=== PATIENT | male | born 1980 | race Caucasian/White ===

== ENCOUNTER 2023-02-06 10:14 | Emergency (ER) | payer OTHER, SELFPAY ==
[2023-02-06] VITALS (10 sets, daily range): BP systolic 158; BP diastolic 95; PULSE 75–108; RESP 16; TEMP 37; O2SAT 89–100; BMI 44.9
--- NOTE | 2023-02-06 10:29 | ED.EXTPRO ---
HPI - Extremity Problem General Chief complaint: Extremity Problem,Nontraumatic Stated complaint: Swelling Rleg, rule o/ Blood clot Time Seen by Provider: 02/06/23 10:21 Source: patient Mode of arrival: Ambulatory History of Present Illness HPI Narrative: 42-year-old gentleman with no significant medical history presents with right leg swelling and primary care suggest any come to the ER to rule out DVT. Notes that approximately 10 days ago [place] and noticed some swelling immediately after the drive. Drove home again 3 days later and the swelling was significantly worse after that. He complains of groin pain. Notes that on December 12(referring back to texting notes) he initially noted some pain in the right groin. He was wondering if perhaps he had recurrent kidney stone or hip flexor abnormality. He is noticed that it has been tender when he stretches but had not noticed any additional abnormalities. Complains of no weight loss, fevers, chills, night sweats, chest pains, shortness of breath, abdominal pain, nausea or vomiting Related Data Previous Rx's Medication Instructions Recorded oxycodone-acetaminophen 5 mg-325 1 tab PO Q6H PRN pain #14 tabs 02/06/23 mg tablet Allergies Allergy/AdvReac Type Severity Reaction Status Date / Time No Known Drug Allergies Allergy Verified 02/06/23 10:22 Review of Systems Review of Systems Narrative: Pertinent positive and negative findings as per HPI Patient History Social History Smoking Status: Unknown if ever smoked Smoking Status: Unknown if ever smoked alcohol intake frequency: 3 or more drinks per day Substance Use Type: does not use Exam Initial Vital Signs Initial Vital Signs: Vital Signs Temperature 98.6 F 02/06/23 10:16 Pulse Rate 108 H 02/06/23 10:16 Respiratory Rate 16 02/06/23 10:16 Blood Pressure 158/95 H 02/06/23 10:16 Pulse Oximetry 96 02/06/23 10:16 Oxygen Delivery Method Room Air 02/06/23 10:16 General: Healthy appearing, in no acute distress. Able to give a complete and coherent history. BMI is 45 HEENT: Moist mucous membranes, normal sclera with reactive pupils, Respiratory: Lungs are clear to auscultation, no wheezing no rales no rhonchi. Full and symmetrical air movement Cardiac: Regular rate and rhythm no murmurs no bruits Abdomen: Soft, nontender, good bowel tones, no flank pain Skin: Warm and dry, no rashes Neurologic: Grossly neurologically intact with no obvious asymmetries or abnormalities Extremities: Right groin with large solid mass in the inguinal area minimally tender to touch, no warmth or erythema. Right leg is swollen but otherwise neurovascularly intact. Psych: Cooperative, appropriate insight and affect Course Orders Ordered: Discontinued Medications Oxycodone/Acetaminophen (Oxycodone/Apap 5/325 Prepack) 1 bottle MISC SEEINSTR ONE Stop: 02/06/23 16:52 Last Admin: 02/06/23 17:13 Dose: Not Given Documented By: NR Vital Signs Vital signs: Vital Signs - 8 hr 02/06/23 10:16 02/06/23 12:16 Temperature 98.6 F Pulse Rate 108 H Pulse Rate [Bilateral Dorsalis Pedis] 82 Respiratory Rate 16 Blood Pressure 158/95 H Pulse Oximetry 96 Oxygen Delivery Method Room Air MDM - Extremity (Nontraumatic) Lab Data 02/06/23 12:46 02/06/23 12:46 Labs: Lab Results 02/06/23 02/06/23 Range/Units 12:46 12:46 WBC 8.5 (4.5-11.0) X10^3/uL RBC 4.72 (4.5-5.9) X10^6/uL Hgb 12.7 L (13.5-17.5) g/dL Hct 37.9 L (41-53) % MCV 80.2 (80-100) fL MCH 26.9 (26-34) PG MCHC 33.6 (30-36) % RDW 13.6 (11.6-14.8) % Plt Count 245 (150-400) X10^3/uL Neut % (Auto) 71.9 (50-75) % Lymph % (Auto) 14.4 L (25-40) % [place] % (Auto) 10.9 (3-14) % Eos % (Auto) 1.9 L (2-4) % Baso % (Auto) 0.9 (0-2) % Neut # (Auto) 6100 (2003-6244) /uL Lymph # (Auto) 1200 (1465-8288) /uL [place] # (Auto) 900 (0-900) /uL Eos # (Auto) 200 (0-450) /uL Baso # (Auto) 100 (0-100) /uL Sodium 136 L (137-145) mmol/L Potassium 4.5 (3.4-5.1) mmol/L Chloride 101 (98-107) mmol/L Carbon Dioxide 30 (22-32) mmol/L BUN 15 (9-20) mg/dL Creatinine 0.77 (0.66-1.25) mg/dL Estimated GFR > 60 (>60) mL/min BUN/Creatinine Ratio 19.5 (6-22) Glucose 87 (70-100) mg/dL Calcium 8.9 (8.4-10.2) mg/dL Total Bilirubin 0.7 (0.2-1.3) mg/dL AST 29 (17-59) IU/L ALT 34 (<50) IU/L Alkaline Phosphatase 74 (38-126) U/L Total Protein 7.6 (6.3-8.2) g/dL Albumin 4.2 (3.5-5.0) g/dL Globulin 3.4 (1.7-4.1) g/dL Albumin/Globulin Ratio 1.2 (1.0-2.8) MDM Narrative Medical decision making narrative: CC: Right leg swelling Complicating co-morbidities: No significant medical history aside from a BMI of 45 Data collected from: patient, Differential considered: DVT, rupture popliteal cyst, lower extremity edema, pelvic obstructing abnormality Exam documented above, pertinent findings include: An approximately 10 cm x 6 cm mass firm, nontender in the inguinal area right side Lab Test results independently reviewed as above. Pertinent findings: CBC is unremarkable CMP is unremarkable Imaging studies independently reviewed: Within the right groin, there is a heterogeneous low echogenicity mass with internal vascularity that measures 11.5 x 8.7 x 8.4 cm. ?CT scan reviewed. Radiolgy interpretation: ?Large 10.4 x 9.6 x 13 cm heterogeneously enhancing mass which appears to be eitheroriginating from the right pectineus muscle versus abutment with medial displacement ofthe muscle.? It is difficult to delineate its margins.? No evidence to suggest adjacent inflammatory changes.? Findings represent a nonspecific soft tissue mass versus possible adenopathy.? Further evaluation with nonemergent biopsy is recommended. Consultations: Discuss with Dr. Huntley, on-call surgery agrees with outpatient follow-up for biopsy of the right inguinal mass. Re-evaluations: Findings are all reviewed with patient. He would like some help with pain control particularly with sleeping. We will give him some Percocet to fill in [place] where he lives. We also discussed continuity of care and where you should follow-up. At this point I strongly recommended he follow up with our general surgery office to make sure that we can expedite biopsy and diagnosis and from there can decide where additional treatment needs to be. With shared decision making, he felt that this too was going to be his best option. Discussion: 42-year-old gentleman presents with right leg swelling. DVT is unremarkable however large inguinal masses appreciated. CT scan shows heterogeneously enhancing mass unclear if it is an independent mass or adenopathy. It is causing right lower extremity edema and pain from the edema. He is having no other complaints. He is aware of the mass as the reason for the swelling and that he needs follow-up with General surgery to schedule a biopsy as soon as possible. Discharge Plan Departure Patient Disposition: Home Clinical Impression: Inguinal mass Activity Restrictions/Additional Instructions: Thank you for coming in today You do not have a blood clot in your leg however we did find a fairly large mass in your right groin. From the CT scan it is not completely clear if this is swollen lymph nodes or an independent mass. This area needs to be biopsied to come to a definitive diagnosis so we can help you best with treatment. Please [phone]. Let them know that you are in the emergency department and need to be scheduled for follow-up consultation for a mass in your groin that will need to be biopsied. In the meantime, your leg will likely continue to be swollen as lymphatic drainage from the leg is being blocked by the mass in your groin. Keeping the leg elevated will likely help. Using ibuprofen Tylenol can be helpful. You may find that compression socks are helpful as well. Prescriptions: New oxycodone-acetaminophen 5-325 mg tablet 1 tab PO Q6H PRN (Reason: pain) Qty: 14 0RF Stand Alone Forms: Patient Portal/API
--- NOTE | 2023-02-06 11:03 | DI.US.S_ITS ---
PROCEDURE: US PERIPH VENOUS LOW EXTREM RT INDICATIONS: RLE EDEMA TECHNIQUE: Real-time imaging, as well as color and pulse Doppler interrogation, were performed of the lower extremity deep veins from the inguinal ligament to the popliteal fossa. COMPARISON: None. FINDINGS: The common femoral, femoral and popliteal veins are normally compressible, and free of intraluminal thrombus. Color and pulse Doppler demonstrate normal phasic intraluminal flow. There is normal augmentation response to distal compression maneuver. Within the right groin, there is a heterogeneous low echogenicity mass with internal vascularity that measures 11.5 x 8.7 x 8.4 cm. IMPRESSION: Negative for deep venous thrombosis. Right groin soft tissue mass seen. Please correlate with patient history and physical examination findings. If appropriate, please consider a follow-up CT for further evaluation. Dictated by: Yusuf Plaza M.D. on 02/06/2023 at 10:10 Approved by: Yusuf Plaza M.D. on 02/06/2023 at 10:12
--- NOTE | 2023-02-06 12:23 | DI.CT.S_ITS ---
PROCEDURE: CT ABDOMEN PELVIS W CON INDICATIONS: right inguinal mass TECHNIQUE: After the administration of intravenous contrast, axial sections acquired from the lung bases to the pubic symphysis. Coronal and sagittal reformats were performed. For radiation dose reduction, the following was used: automated exposure control, adjustment of mA and/or kV according to patient size. COMPARISON: [facility], US, US PERIPH VENOUS LOW EXTREM RT, 02/06/2023, 10:36. FINDINGS: Image quality: Excellent. Lung bases: Unremarkable. Heart: No significant findings. ABDOMEN: Liver: Hepatic steatosis. Mild hepatomegaly Gallbladder: Unremarkable Biliary ducts: Unremarkable. Pancreas: Homogeneous enhancement without focal lesions or pancreatic ductal dilatation. No peripancreatic inflammation or organized fluid collections. Spleen: Mild splenomegaly Adrenal Glands: Unremarkable. Kidneys and Ureters: Kidneys are symmetric in size and enhancement, and there is no obstructive uropathy. No perinephric inflammatory changes. Ureters are normal in course and caliber. Stomach and Bowel: Stomach, small bowel loops, and colon are unremarkable. Normal appendix Peritoneum: No abnormal intraperitoneal fluid. No free air. Ventral Wall: There is a fat-containing umbilical hernia without acute inflammation. Abdominal Nodes: No retroperitoneal or mesenteric adenopathy by size criteria. Vessels: Aorta and inferior vena cava are normal in size. PELVIS: Pelvic Organs: Unremarkable. Bladder: Unremarkable. Pelvic Nodes: No enlarged lymph nodes. Miscellaneous: No hernias are seen. There is a heterogeneously enhancing possibly expansile mass which is difficult to determine if it originates from the right pectineus muscle versus being in close proximity to the muscle and causing medial displacement. This mass measures of approximately 10.4 x 9.6 cm in axial cross-sectional dimension (image 99/series 2) and approximately 13 cm in craniocaudal dimension (image 48/series 4). No adjacent inflammatory stranding. This correlates with sonographic finding. Bones: Visualized osseous structures appear intact without acute fracture or focal destructive lesion. No acute compression fractures of the imaged spine. Bilateral L5 pars defects. IMPRESSION: 1. Large 10.4 x 9.6 x 13 cm heterogeneously enhancing mass which appears to be either originating from the right pectineus muscle versus abutment with medial displacement of the muscle. It is difficult to delineate its margins. No evidence to suggest adjacent inflammatory changes. Findings represent a nonspecific soft tissue mass versus possible adenopathy. Further evaluation with nonemergent biopsy is recommended. 2. Hepatic steatosis with mild hepatosplenomegaly. Dictated by: Baldemar Machado M.D. on 02/06/2023 at 13:15 Approved by: Baldemar Machaod M.D. on 02/06/2023 at 13:35
[2023-02-06 13:16] LABS: Alanine Aminotransferase 34 IU/L (<50); Albumin 4.2 g/dL (3.5-5.0); Albumin Globulin Ratio 1.2 (1.0-2.8); Alkaline Phosphatase 74 U/L (38-126); Aspartate Aminotransferase 29 IU/L (17-59); BUN Creatinine Ratio 19.5 (6-22); Bilirubin Total 0.7 mg/dL (0.2-1.3); Blood Urea Nitrogen 15 mg/dL (9-20); Calcium 8.9 mg/dL (8.4-10.2); Carbon Dioxide 30 mmol/L (22-32); Chloride 101 mmol/L (98-107); Estimated Glomerular Filt Rate > 60 mL/min (>60); Globulin 3.4 g/dL (1.7-4.1); Glucose 87 mg/dL (70-100); HEMOLYSIS 29 (0-50); Potassium 4.5 mmol/L (3.4-5.1); Sodium 136 mmol/L (137-145); Total Protein 7.6 g/dL (6.3-8.2)
[2023-02-06 13:23] LABS: Add Manual Diff / Slide Review NO; Basophils Absolute Auto 100 /uL (0-100); Basophils Percent Auto 0.9 % (0-2); Eosinophils Absolute Auto 200 /uL (0-450); Eosinophils Percent Auto 1.9 % (2-4); Hematocrit 37.9 % (41-53); Hemoglobin 12.7 g/dL (13.5-17.5); Lymphocytes Absolute Auto 1200 /uL (1100-4500); Lymphocytes Percent Auto 14.4 % (25-40); Mean Corpuscular HGB Conc 33.6 % (30-36); Mean Corpuscular Hemoglobin 26.9 PG (26-34); Mean Corpuscular Volume 80.2 fL (80-100); Monocytes Absolute Auto 900 /uL (0-900); Monocytes Percent Auto 10.9 % (3-14); Neutrophils Absolute Auto 6100 /uL (1500-7000); Neutrophils Percent Auto 71.9 % (50-75); Platelet Count 245 X10^3/uL (150-400); Red Blood Cell Count 4.72 X10^6/uL (4.5-5.9); Red Cell Distribution Width 13.6 % (11.6-14.8); White Blood Cell Count 8.5 X10^3/uL (4.5-11.0)
== END 2023-02-06 17:15 | disposition home or self-care (01) ==
PROVIDERS: Emergency Provider Emergency Medicine
DX: R19.09 Other intra-abdominal and pelvic swelling, mass and lump (principal)
CPT/HCPCS: 36415; 74177; 80053; 85025; 93971; 99283; 99284; Q9967